=== PATIENT | male | born 1945 | race Caucasian/White ===

== ENCOUNTER 2021-02-25 19:44 | Emergency (ER) | payer OTHER, SELFPAY ==
[2021-02-25 19:52] VITALS: BP 145/84; PULSE 83; RESP 14; TEMP 36.1; O2SAT 96
== END 2021-02-25 22:11 | disposition left against medical advice (07) ==
PROVIDERS: Emergency Provider Emergency Medicine; PCP Family Medicine
DX: Z77.21 Contact with and (suspected) exposure to potentially hazardous body fluids (principal)
CPT/HCPCS: 99281

== ENCOUNTER 2021-02-26 09:12 | Emergency (ER) | payer OTHER, SELFPAY ==
[2021-02-26 09:36] VITALS: BP 144/84; PULSE 84; RESP 16; TEMP 36.4; O2SAT 99; BMI 30.9
--- NOTE | 2021-02-26 10:15 | ED.SKABFB ---
HPI - Skin/Abscess/Foreign Bdy General Chief complaint: Skin/Abscess/Foreign Body Stated complaint: got covered with septic yesterday. 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 Had some septic if fluent spill and cover the left side of his body. He was able to wash it off immediately. The remainder of the crew said that they were all vaccinated for tetanus as well as hepatitis and recommended that he come to the ER. He did come yesterday however there is a 3 hour wait and he chose to leave in return today. He has no other complaints Related Data Home Medications Medication Instructions Recorded Confirmed aspirin 325 mg tablet,delayed 325 mg PO QDAY #0 02/14/16 release indomethacin 50 mg capsule 50 mg PO BIDP PRN #0 cap 02/14/16 Previous Rx's Medication Instructions Recorded levofloxacin 500 mg tablet 500 mg PO QDAY #10 tab 02/14/16 (Levaquin) Allergies Allergy/AdvReac Type Severity Reaction Status Date / Time morphine Allergy Verified 02/26/21 09:39 Review of Systems Review of Systems Narrative: No eye pain, ear pain, respiratory issues, palpitations or fevers Patient History Social History Smoking Status: Former smoker Smoking Status: Former smoker alcohol intake frequency: 0-2 drinks per day Substance Use Type: does not use Exam Narrative Exam Narrative: General: Alert appropriate in no acute distress Respiratory: Able to speak in full sentences, no obvious respiratory distress Skin: No obvious rashes, warm and dry Neurologic: Grossly intact no obvious asymmetries or abnormalities Psych: appropriate insight and affect, cooperative Initial Vital Signs Initial Vital Signs: Vital Signs Temperature 97.5 F L 02/26/21 09:36 Pulse Rate 84 02/26/21 09:36 Respiratory Rate 16 02/26/21 09:36 Blood Pressure 144/84 H 02/26/21 09:36 Pulse Oximetry 99 02/26/21 09:36 Course Orders Ordered: Discontinued Medications Diphtheria/Tetanus/Acell Pertussis (Tet,Diph,Pertuss(Acell),Vac/Pf 0.5 Ml Syringe) 0.5 ml IM .ONCE ONE Stop: 02/26/21 10:23 Vital Signs Vital signs: Vital Signs - 8 hr 02/26/21 09:36 Temperature 97.5 F L Pulse Rate 84 Respiratory Rate 16 Blood Pressure 144/84 H Pulse Oximetry 99 MDM - Skin/Abscess/Foreign Bdy MDM Narrative Medical decision making narrative: 76-year-old gentleman with exposure to septic fluid washed off immediately. Tetanus status is updated. As he does not routinely work with septic fluid I do not believe that hepatitis series is going to be required but referred him back to his primary care physician for further discussion. He is safe for home discharge Discharge Plan Departure Patient Disposition: Home Clinical Impression: Exposure to toxic substance Instructions: Tetanus, Diphtheria, and Pertussis Vaccine Activity Restrictions/Additional Instructions: Thank you for coming in today I am sorry got covered with septic waste yesterday. Washing it all off right away was the most appropriate treatment. 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 You would need to do this 3 your primary care provider. Your tetanus shot was updated today I hope you have a great time fly fishing tomorrow Prescriptions: No Action aspirin 325 MG tablet,delayed release (DR/EC) 325 mg PO QDAY Qty: 0 RF: 0 indomethacin 50 MG capsule 50 mg PO BIDP PRNQty: 0 RF: 0 levofloxacin [Levaquin] 500 MG tablet 500 mg PO QDAY Qty: 10 RF: 0 Referrals: Guanakito Bell MD [Primary Care Provider] -
[2021-02-26] MEDS: TET,DIPH,PERTUSS(ACELL),VAC/PF 0.5 ML SYRINGE IM (10:47)
[2021-02-26 11:14] VITALS: BP 135/72; PULSE 72; RESP 16
== END 2021-02-26 11:19 | disposition home or self-care (01) ==
PROVIDERS: Emergency Provider Emergency Medicine; PCP Family Medicine
DX: Z77.29 Contact with and (suspected) exposure to other hazardous substances (principal); Z23 Encounter for immunization
CPT/HCPCS: 90471; 96372; 99283; 90715